=== PATIENT | female | born 1965 | race Caucasian/White ===

== ENCOUNTER 2016-09-18 19:02 | Emergency (ER) | payer SELFPAY | END 2016-09-18 20:35 | disposition home or self-care (01) | LOC: D.ER 19:02 | DX: S16.1XXA Strain of muscle, fascia and tendon at neck level, initial encounter (principal); S00.93XA Contusion of unspecified part of head, initial encounter; V43.92XA Unspecified car occupant injured in collision with other type car in traffic accident, initial encounter ==